=== PATIENT | female | born 1980 | race Caucasian/White ===

== ENCOUNTER 2017-03-20 15:19 | Emergency (ER) | payer SELFPAY ==
[~2017-03-20] VITALS: Ht 152.4 cm; Wt 89.0 kg
[~2017-03-20 15:19] MED LIST: PREN1TAB9
[2017-03-20 15:25] VITALS: Ht 152.4 cm; Wt 89.0 kg
== END 2017-03-20 18:42 | disposition left against medical advice (07) ==
LOC: FTE 15:19
DX: Z53.21 Procedure and treatment not carried out due to patient leaving prior to being seen by health care provider (principal)